=== PATIENT | female | born 1985 | race Caucasian/White ===

== ENCOUNTER 2017-02-15 15:20 | Emergency (ER) | payer MEDICARE, OTHER ==
[~2017-02-15] VITALS: Ht 157.5 cm; Wt 81.7 kg
[~2017-02-15 15:20] MED LIST: BENTYL20 MG PO; CLONAZEPAM0.5 MG PO; NORCO 5-325 TA1 EACH PO; ONDANSETRON HCL4 MG PO; PANTOPRAZOLE SO20 MG PO; POTASSIUM CHLO20 ME1 PO; ZOFRAN4 MG PO
[2017-02-15] MEDS ORDERED: MACROBID 100 M100 MG PO (16:25)
--- NOTE | 2017-02-15 20:40 | EKG ---
[facility] [address] [facility] [place], [place] [address] Signed Sinus tachycardia Left axis deviation Abnormal ECG No previous ECGs available Confirmed by SAMARIA MELTON MD ([id number] on 02/15/2017 8:40:10 PM Electronically Signed By: SAMARIA MELTON MD 02/15/172039 PATIENT NAME: JOSIE PARR Electrocardiogram DATE OF : 81 PHYSICIAN: SAMARIA MELTON MD REPORT #: [id number] REPORT IS CONFIDENTIAL AND NOT TO BE RELEASED WITHOUT AUTHORIZATION
== END 2017-02-15 17:32 | disposition home or self-care (01) ==
LOC: ED 15:20
DX: R07.9 Chest pain, unspecified (principal); N39.0 Urinary tract infection, site not specified; R00.0 Tachycardia, unspecified; J45.909 Unspecified asthma, uncomplicated; Z88.0 Allergy status to penicillin; Z88.2 Allergy status to sulfonamides; Z88.6 Allergy status to analgesic agent; Z88.5 Allergy status to narcotic agent; Z79.899 Other long term (current) drug therapy; Z98.890 Other specified postprocedural states
CPT/HCPCS: 80053; 81001; 84484; 84703; 85025; 87088; 93005; 93010; 96361; 96374; 96375; 99284; J0696; J1200; J2405; J7030